=== PATIENT | male | born 1980 | race Caucasian/White ===

== ENCOUNTER 2023-06-28 19:45 | Emergency (ER) | payer OTHER, SELFPAY ==
[2023-06-28 19:51] VITALS: BP 137/93; BP 146/84; PULSE 86; RESP 16; TEMP 37; O2SAT 99; BMI 24.6
--- NOTE | 2023-06-28 20:37 | ED_ITS ---
HPI - General Adult General Chief complaint: Unspecified Complaint, Adult Stated complaint: movement issues R side of body Time Seen by Provider: 06/28/23 20:08 Source: patient and family Mode of arrival: ambulatory Limitations: no limitations History of Present Illness HPI narrative: 42-year-old male presents the emergency department for evaluation of vague, intermittent neurological changes. No headache or vomiting. Patient reports that 2 weeks ago he had a new eye exam and got new contacts as his previous brand was discontinued. He did have an eye exam at the time and does not believe that is prescription was changed in any way. About a week later, he started noticing a clumsiness in his hand. It is very difficult for him to describe and it certainly does sound intermittent. It is not a true weakness and he cannot tell if it is associated at the hand, forearm or upper arm based on his description. It certainly does only happen sometimes and does not seem progressive or to be worsening based on his description he is unable to tell me how long the changes last when they do come. There has been no head trauma or injury, no passing out, denies intoxication. He is a nonsmoker. He has not n oticed any particular the exacerbating or alleviating symptoms. He also states that he feels off balance and feels like his right leg feels a little bit clumsy. No falls, no true weakness. He agrees that symptoms are vague but he did not know if it needed to be investigated. Again, all of this keeps happening intermittently and is certainly not consistent. When I try to pin down how often, it sounds like every couple of days or sometimes multiple times daily sometimes just for a few seconds. No numbness or tingling. No history personally or family history of neurological conditions, stroke, clotting disorders. He has had no recent fever or signs of systemic illness. He does not take any medications. He called his eye doctor yesterday and they offered to repeat his eye exam but they did not think there would be any connection with the arm symptoms, encouraged him to be checked out by primary care team. There were no specific things which caused him to come to the emergency room this evening such as progression or changes+. He is not noting any vision, speech changes. Has not tried any medications to alleviate symptoms. States his past medical history is benign, no major long-term health problems. Nonsmoker. ROS notable for the vague neurological symptoms as described above only, otherwise denies times 12 systems. Related Data Previous Rx's Medication Instructions Recorded diazepam 5 mg tablet 10 mg (2 x 5 mg) PO ONCE PRN 02/04/22 anxiety #2 tabs Allergies Allergy/AdvReac Type Severity Reaction Status Date / Time ragweed pollen Allergy Unknown Verified 04/24/22 14:25 PFSH PFSH Family History Other Colon cancer Social History Smoking Status: Never smoker Exam Const: Vital Signs, click to edit/add: Vital Signs - 24 hr 06/28/23 19:51 Temperature 98.6 F Pulse Rate [Left P ulse Oximeter] 86 Respiratory Rate 16 Blood Pressure [Le ft Upper Arm] 137/93 H Blood Pressure [Ri ght Upper Arm] 146/84 H Pulse Oximetry 99 Oxygen Delivery Me thod Room Air Documenting provider has reviewed patient's vital signs: yes Common normals: no apparent distress and oriented x3 General appearance: cooperative, comfortable and well kempt HENMT: Common normals: normocephalic and TM's normal bilaterally Head and scalp: normocephalic Face and sinus: normal facial exam Tympanic membrane: TM's normal bilaterally Mouth: oral and palatal mucosa normal Throat: posterior oropharynx normal Eye: Common normals: PERRL, EOMs intact bilaterally and conjunctivae normal General eye: normal appearance of both eyes Conjunctiva: conjunctiva(e) normal Pupil: PERRL Neck & C-Spine: Common normals: full ROM and no lymphadenopathy Resp: Common normals: normal respiratory effort, no use of accessory muscles and clear to auscultation bilaterally Effort & inspection: able to speak in complete sentences Auscultation: clear to auscultation bilaterally Cardio: Common normals: regular rate, regular rhythm, S1 normal heart sound, S2 normal heart sound and no murmurs Rate: regular rate Rhythm: regular rhythm Heart sounds: S1 normal and S2 normal GI: Common normals: Normal to inspection, nondistended, normoactive bowel sounds present, soft to palpation, non-tender, no hepatosplenomegaly and no masses Palpation: soft and no hepatosplenomegaly Extremity: Common normals: normal to inspection, full ROM, normal capillary refill and no joint enlargement Neuro: Common normals: oriented x3, CN's II-XII intact bilaterally, moves all extremities, no focal motor deficits and gait normal Coordination/balance: tandem gait normal, does not sway with eyes open, Romberg test negative and Normal rapid alternating movements of the distal upper extremity present (Neuro) Speech: speech normal Motor exam: strength 5/5 throughout, no pronator drift, no tremor noted and no movement abnormalities noted Coordination: tandem gait normal, does not sway with eyes open and rapid alternating movement UE normal Psych: Common normals: speech normal Appearance: well kempt Attitude: engaged Activity/motor behavior: appropriate eye contact Speech: normal speech Mood and affect: euthymic mood Insight: insight good Judgement: judgment good Skin: Common normals: no rashes or lesions noted General skin exam: no rashes or lesions noted Course Course ED Course: Vague intermittent neurological changes that do not fit with any particular motor root or central motor innervation. Intermittent symptoms are somewhat reassuring for stroke-like process. I do not see any signs of intracranial mass effect and there is no headache, vomiting, vision change or escalating symptom. Counseled patient on the potential risks of head CT including risk of radiation. Exam is very reassuring. We discussed the risks and benefits together and he would like to defer on the CT. I discussed how an MRI may be helpful if he has continued symptoms and needs to be arranged by an outpatient provider. I did recommend some basic labs and did counseled that there is a chance that this is an untimely combination of new contacts causing his balance and depth perception change combine with potentially a slight peripheral nerve impingement such as at the cervical spine, shoulder or elbow that could be causing the intermittent clumsiness of the right hand that he describes. Certainly was neurologically normal on exam today. I would like to do some basic labs to look for elevated inflammatory markers, white count, these types of things. He was agreeable to this. I think he could benefit from an outpatient neurological evaluation, tick-borne disease panel and possibly an MRI if deemed appropriate. He was agreeable to this plan and we discussed the limitations of investigation here in the emergency department on the weekend. Await lab findings. Reevaluation(s) Time of Reevaluation #1: 21:32 Reevaluation #1: Patient has not had return of symptoms here in the ED. counseled on having his blood pressure recheck outpatient. Discussed possible non emergency room things in my differential diagnosis. The new contacts could certainly be playing into this, but difficult to tell. I have encouraged him to keep a symptom diary to learn more about timing, duration, progression of symptoms. He was agreeable to this. He will schedule primary care follow-up at his 1st available convenience for additional workup described in the discharge instructions. Counseled on signs and symptoms of stroke and coming back to the emergency room if things worsen. He verbalized understanding and agreement has no further questions. Vital Signs Vital signs: Initial Vital Signs Temperature 98.6 F 06/28/23 19:51 Temperature Source Temporal Artery Scan 06/28/23 19:51 Pulse Rate 86 06/28/23 19:51 Pulse Rhythm Regular 06/28/23 19:51 Respiratory Rate 16 06/28/23 19:51 Blood Pressure 146/84 H 06/28/23 19:51 Blood Pressure Mean 104 06/28/23 19:51 Blood Pressure Position Sitting 06/28/23 19:51 Pulse Oximetry 99 06/28/23 19:51 Oxygen Delivery Method Room Air 06/28/23 19:51 Vital Signs Temperature 98.6 F 06/28/23 19:51 Pulse Rate 86 06/28/23 19:51 Respiratory Rate 16 06/28/23 19:51 Blood Pressure 146/84 H 06/28/23 19:51 Pulse Oximetry 99 06/28/23 19:51 Oxygen Delivery Method Room Air 06/28/23 19:51 Temperature 98.6 F 06/28/23 19:51 Pulse Rate 86 06/28/23 19:51 Respiratory Rate 16 06/28/23 19:51 Blood Pressure 146/84 H 06/28/23 19:51 Pulse Oximetry 99 06/28/23 19:51 Oxygen Delivery Method Room Air 06/28/23 19:51 Medical Decision Making Lab Data Lab results reviewed: Yes I reviewed the patient's lab results Lab results narrative: Labs reassuring. No signs of leukocytosis, infection, elevated inflammatory markers, kidney disease, electrolyte abnormalities. Patient has not had return of symptoms while in the ED. Labs: Lab Results 06/28/23 Range/Units 20:46 WBC 10.08 (4.50-11.00) K/uL RBC 5.23 (4.30-5.90) m/uL Hgb 15.3 (13.5-17.5) gm/dL Hct 44.5 (37.0-53.0) % MCV 85 (80-100) fL MCH 29 (26-34) pg MCHC 34 (32-36) gm/dL RDW Coeff of Josi 12.5 (11.5-15.5) % Plt Count 331 (140-440) K/uL Neut % (Auto) 63.1 (42.0-72.0) % Lymph % (Auto) 23.8 (20-44) % [place] % (Auto) 11.4 H (0.0-11.0) % Eos % (Auto) 1.4 (0.0-7.0) % Baso % (Auto) 0.2 (0.0-3.0) % Neut # (Auto) 6.36 (1.7-7.0) K/uL Lymph # (Auto) 2.40 (0.90-2.90) K/uL [place] # (Auto) 1.10 H (0.00-0.90) K/UL Eos # (Auto) 0.14 (0.00-0.50) K/uL Baso # (Auto) 0.02 (0.00-0.30) K/uL Abs Immat Gran (auto) 0.01 (0.00-0.30) K/uL Imm/Tot Granulo (auto) 0.1 % Sodium 141 (135-149) mmol/L Potassium 3.8 (3.6-5.1) mmol/L Chloride 103 (96-114) mmol/L Carbon Dioxide 29 (20-32) mmol/L Anion Gap 9 (7-15) mEq/L BUN 16 (5-24) mg/dL Creatinine 0.7 (0.5-1.5) mg/dL Estimated Creat Clear 143.39 Estimated GFR 119 ml/min Glucose 124 H (60-115) mg/dL Calcium 9.6 (8.4-10.6) mg/dL Total Bilirubin 0.4 (0.1-1.5) mg/dL AST 38 H (12-35) U/L ALT 37 (4-50) U/L Alkaline Phosphatase 54 (40-150) U/L C-Reactive Protein < 0.5 L (0.5-1.0) mg/dL Total Protein 8.2 (6.0-8.3) g/dL Albumin 4.9 (3.3-5.0) g/dL Discharge Plan Discharge Clinical Impression: Ataxia of right upper extremity Patient Disposition: Home w/ Parent or Adult Condition: Stable Additional Instructions: As we discussed, there are no signs of large stroke or severe infection causing the intermittent clumsiness of your arm, balance issues and vague neurological complaints today. We can only do a limited workup in the emergency department and thankfully these are reassuring but can only rule out large, dangerous, emergent conditions. I do think that there is value in a more thorough workup for you and would recommend that you make a follow-up appointment to establish care with a primary care provider as soon as possible. Your blood pressure was mildly elevated, this certainly could explain some of the changes you are seeing in the left visual field from time to time. This should be rechecked. I would also recommend that you have a blood test for tick-borne diseases, this cannot be performed in the emergency department. And I think that you should either have a neurology consult, EMG of the upper extremity or an MRI performed if you continue to have escalating neurological changes. This would look for not emergent causes of your intermittent clumsiness of the right arm and balance issues. If you have persistent changes, stroke-like symptoms or worsening, please come back to the emergency department right away. As we discussed, a CT scan could potentially show me a large stroke or tumor in the brain but the risk of radiation with a normal exam did not seem warranted and you agreed at this time. The MRI could potentially show S more minute changes if you and your [facility] care provider deem this necessary. Activity Level: No Restrictions Discharge Diet: Regular Prescriptions: No Action diazepam 5 mg tablet 10 mg PO ONCE PRN (Reason: anxiety) Qty: 2 0RF Rx Instructions: Take 2 tabs 1 hour before procedure Follow Up/Referrals: Guevara Garner MD [Primary Care Provider] - Stand Alone Forms: [employer] Info Instructions
[2023-06-28 20:51] LABS: Basophils Absolute Auto 0.02 K/uL (0.00-0.30); Basophils Percent Auto 0.2 % (0.0-3.0); Eosinophils Absolute Auto 0.14 K/uL (0.00-0.50); Eosinophils Percent Auto 1.4 % (0.0-7.0); Hematocrit 44.5 % (37.0-53.0); Hemoglobin* 15.3 gm/dL (13.5-17.5); Immature Granulocytes Abs Auto 0.01 K/uL (0.00-0.30); Immature Granulocytes Pct Auto 0.1 %; Lymphocytes Percent Auto 23.8 % (20-44); Mean Corpuscular HGB Conc 34 gm/dL (32-36); Mean Corpuscular Hemoglobin 29 pg (26-34); Mean Corpuscular Volume 85 fL (80-100); Monocytes Percent Auto 11.4 % (0.0-11.0); Neutrophils Absolute Auto 6.36 K/uL (1.7-7.0); Neutrophils Percent Auto 63.1 % (42.0-72.0); Platelet Count* 331 K/uL (140-440); RDW Coefficient of Variation % 12.5 % (11.5-15.5); Red Blood Count 5.23 m/uL (4.30-5.90); White Blood Count* 10.08 K/uL (4.50-11.00)
[2023-06-28 20:57] LABS: Slide Review Reflex No
[2023-06-28 21:07] LABS: Albumin* 4.9 g/dL (3.3-5.0); Chloride* 103 mmol/L (96-114)
[2023-06-28 21:08] LABS: Potassium* 3.8 mmol/L (3.6-5.1); Sodium* 141 mmol/L (135-149)
[2023-06-28 21:10] LABS: Alkaline Phosphatase* 54 U/L (40-150); Anion Gap 9 mEq/L (7-15); Aspartate Amino Transferase* 38 U/L (12-35); Bilirubin Total* 0.4 mg/dL (0.1-1.5); Carbon Dioxide* 29 mmol/L (20-32); Creatinine* 0.7 mg/dL (0.5-1.5); Est. Creatinine Clearance* 143.39; Estimated Glomerular Filt Rate 119 ml/min; Total Protein* 8.2 g/dL (6.0-8.3)
[2023-06-28 21:11] LABS: Alanine Aminotransferase* 37 U/L (4-50); Blood Urea Nitrogen* 16 mg/dL (5-24); Calcium* 9.6 mg/dL (8.4-10.6); Glucose* 124 mg/dL (60-115)
[2023-06-28 21:17] LABS: C Reactive Protein* < 0.5 mg/dL (0.5-1.0)
== END 2023-06-28 21:40 | disposition home or self-care (01) ==
LOC: ED 20:55
PROVIDERS: Emergency Provider Family Medicine; PCP Family Medicine
DX: R27.0 Ataxia, unspecified (principal)
CPT/HCPCS: 36415; 80053; 85025; 86140; 99283; 99284

== ENCOUNTER 2023-06-30 11:56 | Outpatient (CLI) | payer OTHER, SELFPAY | END 2023-06-30 11:57 | disposition home or self-care (01) | LOC: LKVREF 12:01 | PROVIDERS: PCP Family Medicine; Visit Provider Family Medicine | DX: R20.2 Paresthesia of skin (principal) | CPT/HCPCS: 86618 ==

== ENCOUNTER 2023-07-10 08:13 | Outpatient (CLI) | payer OTHER, SELFPAY ==
--- NOTE | 2023-07-10 08:15 | MR_ITS ---
Patient: GLADIS ROONEY Facility:?[facility] Patient ID:?[id number] Site Patient ID:?[id number]. Site :?1980 Study:?MRI-Spine Cervical W/O-07/10/2023 9:25:31 AM Ordering Physician:?BECCA CASTILLO Final Report: Indication: Paresthesias. Technique: Multisequence multiplanar MRI of the cervical spine without the use of intravenous contrast. Comparison: Correlated cervical spine radiographs dated 06/30/2023. Findings: Normal vertebral alignment, stature, and intrinsic marrow signal intensity. Mild disc desiccation and height loss C5-C6 and C6-C7. Normal signal intensity of the cervical spinal cord. Unremarkable paraspinal soft tissues. C2-C3: No significant spinal canal or neural foraminal stenosis. C3-C4: Mild facet joint hypertrophy. No significant spinal canal or neural foraminal stenosis. C4-C5: No significant spinal canal or right neural foraminal narrowing. Mild- moderate left neural foraminal narrowing from uncovertebral and facet joint hypertrophy. C5-C6: No significant spinal canal or left neural foraminal narrowing. Mild right neural foraminal narrowing from uncovertebral and facet joint arthrosis. C6-C7: Symmetric disc bulge indenting the ventral thecal sac. No significant spinal canal stenosis. Mild right and moderate-severe left neural foraminal narrowing sequela of uncovertebral and facet joint hypertrophy. C7-T1: No significant spinal canal or neural foraminal stenosis. Impression: 1. Mild multilevel cervical spondylosis. 2. Normal signal intensity of the cervical spinal cord. 3. At C4-C5, mild-moderate left neural foraminal narrowing. 4. At C5-C6, mild right neural foraminal narrowing. 5. At C6-C7, mild right and moderate-severe left neural foraminal narrowing. Dictated by Bubba Dang MD @ 07/10/2023 4:43:32 PM Signed by:?Bubba Dang MD @07/10/2023 4:43:32 PM (Electronic Signature)
--- NOTE | 2023-07-10 09:00 | MR_ITS ---
Patient: GLADIS ROONEY Facility:?[facility] Patient ID:?[id number] Site Patient ID:?[id number]. Site :?1980 Study:?MRI-Head W/O-07/10/2023 9:23:59 AM Ordering Physician:?BECCA CASTILLO Final Report: INDICATION: Paresthesia of skin. TECHNIQUE: Multiplanar multisequence noncontrast MR images of the brain. COMPARISON: None. FINDINGS: Small to moderate bandlike distribution of mild diffusion restriction and FLAIR hyperintensity within the left frontal, parietal, temporal, and occipital lobes, compatible with subacute infarctions. Dominant infarctions involve the left postcentral gyrus and left frontoparietal centrum semiovale. The ventricles are normal in size for patient age. No midline shift. No recent intracranial hemorrhage or pathologic extra-axial fluid collection. The major arterial flow voids of the skullbase are preserved. The globes are symmetric. Mild paranasal sinus mucosal thickening. Trace left mastoid effusion. IMPRESSION: Small to moderate bandlike distribution of subacute infarctions within the left cerebral hemisphere, including dominant infarctions involving the left postcentral gyrus and left frontoparietal centrum semiovale. Dictated by Efrain Ch MD @ 07/10/2023 10:38:07 AM Signed by:?Efrain Ch MD @07/10/2023 10:38:07 AM (Electronic Signature)
--- NOTE | 2023-07-11 15:35 | PC.NURSE ---
got called from clinic pt has MRI results and wanted to go over results with MD sent call to ED
== END 2023-07-10 08:14 | disposition home or self-care (01) ==
LOC: MRI 08:14
PROVIDERS: PCP Family Medicine; Visit Provider Family Medicine
DX: R20.2 Paresthesia of skin (principal); R27.0 Ataxia, unspecified; M50.221 Other cervical disc displacement at C4-C5 level; M50.222 Other cervical disc displacement at C5-C6 level; M50.223 Other cervical disc displacement at C6-C7 level
CPT/HCPCS: 70551; 72141

== ENCOUNTER 2023-09-12 13:31 | Outpatient (CLI) | payer OTHER, SELFPAY | END 2023-09-12 13:32 | disposition home or self-care (01) | PROVIDERS: PCP Family Medicine; Visit Provider Family Medicine | DX: E78.5 Hyperlipidemia, unspecified (principal); I65.22 Occlusion and stenosis of left carotid artery | CPT/HCPCS: 80053; 80061 ==

== ENCOUNTER 2023-11-21 08:30 | Outpatient (CLI) | payer OTHER, SELFPAY | END 2023-11-21 08:31 | disposition home or self-care (01) | LOC: NFLDREF 13:10 | PROVIDERS: PCP Family Medicine; Referring Provider Family Medicine; Visit Provider Physician Assistant Medical | DX: E78.5 Hyperlipidemia, unspecified (principal) | CPT/HCPCS: 80061; 80076 ==

== ENCOUNTER 2024-02-16 08:14 | Outpatient (CLI) | payer OTHER, SELFPAY | END 2024-02-16 08:15 | disposition home or self-care (01) | PROVIDERS: PCP Family Medicine; Visit Provider Family Medicine | DX: Z00.00 Encounter for general adult medical examination without abnormal findings (principal); E78.5 Hyperlipidemia, unspecified; R74.8 Abnormal levels of other serum enzymes | CPT/HCPCS: 80061; 80076 ==

== ENCOUNTER 2024-08-19 08:05 | Outpatient (CLI) | payer OTHER, SELFPAY | END 2024-08-19 08:06 | disposition home or self-care (01) | LOC: NFLDREF 08-26 22:11 | PROVIDERS: PCP Family Medicine; Referring Provider Family Medicine; Visit Provider Family Medicine | DX: E78.5 Hyperlipidemia, unspecified (principal); R74.8 Abnormal levels of other serum enzymes | CPT/HCPCS: 80061; 80076 ==